=== PATIENT | female | born 1945 | race Caucasian/White ===

== ENCOUNTER 2023-12-09 09:29 | Outpatient (AMB) | payer OTHER, SELFPAY ==
--- NOTE | 2023-12-09 09:30 | MHC.OFFVIS ---
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1% topical terconazole 0.4% 1 appful vaginal BEDTIME HPI Chronic Mildline Low Back HPI Details 78-year-old female who presents today to the office for an evaluation of chronic midline low back pain that has been been present for many years. 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 She has a longstanding history of low back pain radiating to the right leg. The pain is rated at 10/10 in intensity. The pain starts in her lower back and radiates up to her right knee, both the front and the back. It is described as a sharp stabbing sensation associated with cramping and numbness, and it is constant. It affects her normal activities and is present throughout the day. She has been taking Advil with minimal benefit. She completed a three-month course of physical therapy last month with moderate relief. She has completed an MRI scan, but it is not available for review today. She is amenable to proceed with injection therapy to help restore her mobility and ability to conduct ADLs. [facility] Medical History (Updated 12/09/23 @ 11:47 by Brian Stewart MD) Cervical nerve root impingement Right lumbar radiculopathy Primary osteoarthritis involving multiple joints Chronic midline low back pain without sciatica Review of Systems Const All systems reviewed & are unremarkable except as noted in HPI and below Physical Exam Vital Signs: Last Vital Signs Pulse 76 12/09/23 09:31 Resp 12 12/09/23 09:31 BP 141/68 H 12/09/23 09:31 Pulse Ox 97 12/09/23 09:31 Oxygen Delivery Method Room Air 12/09/23 09:31 BMI result Body Mass Index 34.2 General: Appears afebrile. Alert and oriented. Mood and affect appropriate. Follows and participates in conversation appropriately. Respiratory effort is unlabored. Able to transition from sit to stand unassisted. Ambulates with bilaterally normal heel strike and toe off. Straight leg raise is positive on the right side. Results Reviewed Results Reviewed: No imaging is available for review. Assessment & Plan Assessment & Plan (1) Right lumbar radiculopathy: Code(s): M54.16 - Radiculopathy, lumbar region Plan I advised the patient to locate her MRI report and images and bring them to us on the next visit for review. We will schedule her for tentatively either L4-5 or L5-S1 interlaminar epidural steroid injection based on review of MRI on the day of the procedure. Discussed the risks and benefits of the procedure with the patient in detail. All questions were answered. The patient is on board with the plan. Informed the patient that insurance approval is required. We will file a PA for approval and keep her updated. Justification for interventional therapy: ? Patient with average pain > 6/10 ? Patient has exhausted conservative therapy including 3 months of physical therapy Scribed for Dr. Stewart by Michael Garcia, chief medical technologist, on 12/09/2023. I, Dr. Stewart, have personally reviewed and agree with the information entered by the scribe. Coding Level of Care Code New Pt Level 4 (66592) Diagnoses Right lumbar radiculopathy M54.16
[2023-12-09 09:31] VITALS: BP 141/68; PULSE 76; RESP 12; O2SAT 97; BMI 34.2
== END 2023-12-09 09:53 | disposition home or self-care (01) ==
PROVIDERS: PCP Physician Assistant; Referring Provider Physician Assistant; Visit Provider Internal Medicine
DX: M54.16 Radiculopathy, lumbar region (principal)
CPT/HCPCS: 99204

== ENCOUNTER → 2023-12-09 09:29 | Outpatient (BNVA) | payer OTHER, SELFPAY | PROVIDERS: PCP Physician Assistant; Referring Provider Physician Assistant; Visit Provider Internal Medicine | DX: M54.16 Radiculopathy, lumbar region (principal) | CPT/HCPCS: 99202 ==

== ENCOUNTER 2024-02-23 06:09 | Outpatient (REF) | payer OTHER, SELFPAY ==
--- NOTE | ~2024-02-23 | FL_ITS ---
EXAMINATION: XR FLUOROSCOPY WITH IMAGES CLINICAL INFORMATION: Radiculopathy in lumbar region. COMPARISON: None available. TECHNIQUE: Fluoroscopy Supervised By: Dr. Brian Stewart. Fluoroscopy Time: 0.4 minutes. Cumulative Dose: 6.61 mGy. DAP: 0.0431 Gycm2. Images: 3. FINDINGS: Intraoperative fluoroscopy and spot films were performed during a procedure in the OR. A single needle is present on the right with contrast injected in the epidural space. The exact level cannot be ascertained secondary to the marked coning of the radiographs. Please see Dr. Brian Stewart's report for complete details. FL/FL guidance in treatment room IMPRESSION: Intraoperative fluoroscopy and spot films were obtained. Please see Dr. Brian Stewart's report for complete details.
== END 2024-02-23 06:10 | disposition home or self-care (01) ==
LOC: CF 06:09
PROVIDERS: Visit Provider Internal Medicine
DX: M54.16 Radiculopathy, lumbar region (principal)
CPT/HCPCS: 64483; J1100; Q9967

== ENCOUNTER 2024-02-23 09:02 | Outpatient (AMB) | payer OTHER, SELFPAY ==
--- NOTE | 2024-02-23 09:12 | A.OFFVIS_ITS ---
Vital Signs 02/23/24 10:09 02/23/24 10:10 Height 5 ft 2 in Weight 187 lb BMI 34.2 BP 128/78 134/76 Blood Pressure Location Lt brachial Lt brachial Position Sitting Sitting Respiration 18 Pulse 88 74 Pulse Source Pulse Oximeter Pulse Oximeter Pulse Oximetry (%) 97 98 Oxygen Delivery Method Room Air Room Air Comment Pre-Op Post-Op Intake Visit Reasons: Right L1 TFESI Allergies No Known Allergies Allergy (Verified 12/09/23 09:33) HPI HPI Right L1 TFESI: Details: Patient presents for scheduled procedure. Denies any recent cough, cold, infection, fever or other significant changes in medical history since last office visit. [facility] Medical History (Updated 12/09/23 @ 11:47 by Brian Stewart MD) Cervical nerve root impingement Right lumbar radiculopathy Primary osteoarthritis involving multiple joints Chronic midline low back pain without sciatica Physical Exam Vital Signs: Last Vital Signs Pulse 74 02/23/24 10:10 Resp 18 02/23/24 10:10 BP 134/76 02/23/24 10:10 Pulse Ox 98 02/23/24 10:10 Oxygen Delivery Method Room Air 02/23/24 10:10 BMI result Body Mass Index 34.2 Office Procedures Details: Transforaminal epidural steroid injection, Right L1 After obtaining written consent, pre-procedure blood pressure and heart rate were stable and recorded in the nursing record. The patient was placed in the prone position on the fluoroscopy table. The lumbosacral area was prepped with chloraprep, allowed to dry and draped in sterile fashion. Using fluoroscopy, the skin overlying our target was anesthetized with 0.5% lidocaine. A 22 gauge 3.5 inch spinal needle was advanced to the safe triangle in the upper pole of the right L1 foramen. No paresthesias were elicited with needle placement and aspiration was negative for blood and CSF. Correct needle position was confirmed with approximately 1 ml contrast dye (Omnipaque 180 mg/ml) injected under real-time fluoroscopy. No evidence of vascular or intrathecal uptake was seen and there was both epidural and peripheral spread of the contrast agent. 10 mg dexamethasone plus 1 ml containing 0.5% lidocaine was slowly injected. The needle was flushed and removed. the same procedure was repeated for the remaining levels. The skin was cleansed and a sterile bandages were applied. The patient tolerated the procedure well and no complications were encountered. Following the procedure the patient's vital signs were stable. The patient was discharged home in good condition with post-procedural instructions. Time Out: Immediately prior to the procedure, the following was verbally confirmed that there is a signed consent form and that the correct patient, planned procedure, site and side are consistent with documentation and that necessary equipment and/or blood products are available prior to the start of the case. Complications: none EBL: <5 cc 40640 - Lumbar/Sacral Procedure code (CPT) selection complete Assessment & Plan Assessment & Plan (1) Right lumbar radiculopathy: Code(s): M54.16 - Radiculopathy, lumbar region Category: Medical Plan Patient is status post right L1 TFESI. Patient tolerated procedure well and was discharged home in stable condition with discharge instructions. All questions were answered. We will follow-up via telephone or in clinic to assess response to therapy. A follow-up appointment was made during today's visit. Orders: Orders FL guidance in treatment room Today M54.16 - Radiculopathy, lumbar region Coding Level of Care Code Procedure Only Diagnoses Right lumbar radiculopathy M54.16 CPT Codes Transforaminal Epidural Steroid Inj - TESI 3: 37294 - Lumbar/Sacral ([id number])
[2024-02-23 10:09] VITALS: BP 128/78; PULSE 88; O2SAT 97; BMI 34.2
[2024-02-23 10:10] VITALS: BP 134/76; PULSE 74; RESP 18; O2SAT 98
== END 2024-02-23 09:57 | disposition home or self-care (01) ==
LOC: HO.PMCPRC 09:03
PROVIDERS: PCP Physician Assistant; Visit Provider Internal Medicine
DX: M54.16 Radiculopathy, lumbar region (principal)
CPT/HCPCS: 64483

== ENCOUNTER 2024-03-23 08:57 | Outpatient (AMB) | payer OTHER, SELFPAY ==
--- NOTE | 2024-03-23 09:01 | MHC.OFFVIS ---
Vital Signs 03/23/24 09:03 Height 5 ft 2 in Weight 184 lb BMI 33.7 BP 136/76 Blood Pressure Location Lt brachial Position Sitting Respiration 14 Pulse 78 Pulse Source Pulse Oximeter Pulse Oximetry (%) 95 Oxygen Delivery Method Room Air Intake Visit Reasons: s/p Right L1 TFESI Allergies No Known Allergies Allergy (Verified 03/23/24 09:07) Medication List - Last Reconciled 03/23/24 by Florence Mcdowell LPN acetaminophen 500 mg PO Q6H PRN alclometasone 0.05% topical BID PRN betamethasone dipropionate 0.05% topical ciclopirox 0.77% appl topical ciclopirox 1% topical clonazepam mg PO desoximetasone 0.25% topical hydroxyzine HCl 25 mg PO BID ibuprofen 600 mg PO BID PRN ketoconazole 2% topical ketorolac 0.5% drps ophthalmic (eye) lidocaine 5% 2 topical TID loperamide mg PO BID loratadine 10 mg PO DAILY meloxicam 15 mg PO DAILY rosuvastatin 10 mg PO BEDTIME tacrolimus 0.1% topical terconazole 0.4% 1 appful vaginal BEDTIME HPI HPI s/p Right L1 TFESI: Details: 78-year-old female who presents today to the office for a status post right L1 TFESI. The patient reports 50% relief following the procedure. She has significant pain relief, but it is not completely resolved. She has a history of disc herniation. She also reports shoulder pain and has requested a shoulder injection. Past procedures 02/23/24: Transforaminal epidural steroid injection, Right L1: 50% relief. [facility] Medical History (Updated 12/09/23 @ 11:47 by Brian Stewart MD) Cervical nerve root impingement Right lumbar radiculopathy Primary osteoarthritis involving multiple joints Chronic midline low back pain without sciatica Review of Systems Const All systems reviewed & are unremarkable except as noted in HPI and below Physical Exam Vital Signs: Last Vital Signs Pulse 78 03/23/24 09:03 Resp 14 03/23/24 09:03 BP 136/76 03/23/24 09:03 Pulse Ox 95 03/23/24 09:03 Oxygen Delivery Method Room Air 03/23/24 09:03 BMI result Body Mass Index 33.7 General: Appears afebrile. Alert and oriented. Mood and affect appropriate. Follows and participates in conversation appropriately. Respiratory effort is unlabored. Able to transition from sit to stand unassisted. Ambulates with bilaterally normal heel strike and toe off. She is unable to extend her left arm more than 30 degrees. Results Reviewed Results Reviewed: No imaging is available for review. Assessment & Plan Assessment & Plan (1) Right lumbar radiculopathy: Code(s): M54.16 - Radiculopathy, lumbar region Category: Medical Plan She will return to the clinic in two weeks for a left-shoulder subacromial bursa injection. We would plan on repeating her right L1 TFESI in the future with an appropriate interval. She inquired about surgical options. I told her we would try one more injection and see if it made a significant difference to her pain. If she continues to have debilitating pain, then we may consider a neurosurgical referral. Scribed for Dr. Stewart by Michael Garcia, medical pathology teacher, on 03/23/2024. I, Dr. Stewart, have personally reviewed and agree with the information entered by the scribe. Coding Level of Care Code Est Pt Level 3 (79132) Diagnoses Right lumbar radiculopathy M54.16
[2024-03-23 09:03] VITALS: BP 136/76; PULSE 78; RESP 14; O2SAT 95; BMI 33.7
== END 2024-03-23 09:22 | disposition home or self-care (01) ==
PROVIDERS: PCP Physician Assistant; Visit Provider Internal Medicine
DX: M54.16 Radiculopathy, lumbar region (principal)
CPT/HCPCS: 99213

== ENCOUNTER → 2024-03-23 08:57 | Outpatient (BNVA) | payer OTHER, SELFPAY | PROVIDERS: PCP Physician Assistant; Visit Provider Internal Medicine | DX: M54.16 Radiculopathy, lumbar region (principal) | CPT/HCPCS: 99212 ==

== ENCOUNTER 2024-04-04 09:53 | Outpatient (AMB) | payer OTHER, SELFPAY ==
--- NOTE | 2024-04-04 10:24 | A.OFFVIS_ITS ---
Vital Signs 04/04/24 10:26 Height 5 ft 2 in Weight 184 lb BMI 33.7 BP 182/78 H Blood Pressure Location Lt brachial Position Sitting Respiration 14 Pulse 81 Pulse Source Pulse Oximeter Pulse Oximetry (%) 94 Oxygen Delivery Method Room Air Intake Visit Reasons: SHOULDER INJECTION Allergies No Known Allergies Allergy (Verified 03/23/24 09:07) HPI HPI SHOULDER INJECTION: Details: 78-year-old female who presents to the office for left shoulder injection. Denies any recent cough, cold, infection, fever or other significant changes in medical history since last office visit. Past procedures: 02/23/24: Transforaminal epidural steroid injection, Right L1: 50% relief. [facility] Medical History (Updated 04/04/24 @ 11:29 by Brian Stewart MD) Cervical nerve root impingement Right lumbar radiculopathy Primary osteoarthritis involving multiple joints Chronic midline low back pain without sciatica Review of Systems Const All systems reviewed & are unremarkable except as noted in HPI and below Physical Exam Vital Signs: Last Vital Signs Pulse 81 04/04/24 10:26 Resp 14 04/04/24 10:26 BP 182/78 H 04/04/24 10:26 Pulse Ox 94 04/04/24 10:26 Oxygen Delivery Method Room Air 04/04/24 10:26 BMI result Body Mass Index 33.7 General: Appears afebrile. Alert and oriented. Mood and affect appropriate. Follows and participates in conversation appropriately. Respiratory effort is unlabored. Able to transition from sit to stand unassisted. Office Procedures Joint Injection/Drain Joint Injection/Drain Primary Site: left shoulder Prep: site was prepped using sterile technique Injected: 40 mg of, Kenalog, with 3 mL of (ropivacaine 0.5%) and in the subcromial space Approach Used: posterolateral (under ultrasound guidance) Coding 62142 - Acromioclavicular with ultrasound guidance Procedure code (CPT) selection complete Details: Procedure code (CPT) selection complete Results Reviewed Results Reviewed: No imaging is available for review Assessment & Plan Assessment & Plan (1) Left shoulder pain: Code(s): M25.512 - Pain in left shoulder Category: Medical Plan Patient is status post left subacromial bursa injection. Patient tolerated procedure well and was discharged home in stable condition with discharge instructions. All questions were answered. Follow-up as needed. Scribed for Dr. Stewart by Alaina Vaughan, medical claims representative, on 04/04/2024. I, Dr. Stewart, have personally reviewed and agree with the information entered by the scribe. Coding Level of Care Code Procedure Only Diagnoses Left shoulder pain M25.512 CPT Codes Coding - Joint 6: 08943 - Acromioclavicular with ultrasound guidance ([id number])
[2024-04-04 10:26] VITALS: BP 182/78; PULSE 81; RESP 14; O2SAT 94; BMI 33.7
== END 2024-04-04 10:36 | disposition home or self-care (01) ==
PROVIDERS: PCP Physician Assistant; Visit Provider Internal Medicine
DX: M25.512 Pain in left shoulder (principal)
CPT/HCPCS: 20611

== ENCOUNTER → 2024-04-04 09:53 | Outpatient (BNVA) | payer OTHER, SELFPAY | PROVIDERS: PCP Physician Assistant; Visit Provider Internal Medicine | DX: M25.512 Pain in left shoulder (principal) | CPT/HCPCS: 20610; 20611; J2795; J3301 ==